=== PATIENT | male | born 1990 | race Two or more races ===

== ENCOUNTER 2021-09-20 18:01 | Emergency (ER) | payer BC, OTHER ==
[~2021-09-20] VITALS: Ht 180.3 cm; Wt 99.8 kg
[2021-09-20 18:02] VITALS: BP 139/93
== END 2021-09-20 21:08 | disposition left against medical advice (07) ==
LOC: ER 18:01
DX: M25.571 Pain in right ankle and joints of right foot (principal); Z53.21 Procedure and treatment not carried out due to patient leaving prior to being seen by health care provider; V49.69XA Unspecified car occupant injured in collision with other motor vehicles in traffic accident, initial encounter; Y93.9 Activity, unspecified; Y92.89 Other specified places as the place of occurrence of the external cause; Y99.8 Other external cause status
CPT/HCPCS: 73610

== ENCOUNTER 2023-03-17 16:04 | Emergency (ER) | payer BC, OTHER ==
[~2023-03-17] VITALS: Ht 180.3 cm; Wt 102.1 kg
[2023-03-17 16:58] VITALS: BP 134/77
[2023-03-17] MEDS: FAMOTIDINE (10MG/ML) 2ML VL IV ONE (17:52)
[2023-03-17] MEDS: methylPREDNISolone SOD SUCC 125 MG/2 ML VL IV ONE (17:53)
[2023-03-17] MEDS: diphenhdrAMINE HCL 50 MG/1 ML VL IV ONE (17:53)
[2023-03-17] MEDS ORDERED: FAMO20TA10 PO (18:07)
[2023-03-17] MEDS ORDERED: PRED20TA2 PO (18:07)
[2023-03-17] MEDS ORDERED: EPIN0.1I11 IJ (18:07)
== END 2023-03-17 19:12 | disposition home or self-care (01) ==
LOC: ER 16:04
DX: D84.1 Defects in the complement system (principal)
CPT/HCPCS: 96374; 96375; 99284; J1200; J2930; J3490

== ENCOUNTER 2024-02-23 12:41 | Inpatient (IN) | payer BC, OTHER ==
[~2024-02-23] VITALS: Ht 180.3 cm; Wt 105.4 kg
[~2024-02-23 12:41] MED LIST: EPIN0.1I11 IJ; FAMO20TA10 PO; PRED20TA2 PO
[2024-02-23 14:55] LABS: Basophils # (auto) 0.1 10 ^3/uL (0-0.2); Hematocrit 24.5 % (41.0-53.0); Neutrophils # (auto) 2.6 10 ^3/uL (1.6-8.6); White Blood Cell 4.7 10^3/uL (4.4-10.8)
[2024-02-23 14:56] LABS: Basophils % (auto) 2.8 % (0.0-2.0); Eosinophils # (auto) 0.5 10 ^3/uL (0-0.8); Lymphocytes # (auto) 1.1 10 ^3/uL (0.4-5.4); Lymphocytes % (auto) 24.5 % (10.0-50.0); Mean Corpuscular Hemoglobin 17.7 pg (28.0-32.0); Mean Corpuscular Volume 63.1 fL (80.0-100.0); Monocytes # (auto) 0.3 10 ^3/uL (0-1.3); Monocytes % (auto) 7.3 % (0.0-12.0); Neutrophils % (auto) 55.4 % (37.0-80.0); Nucleated Red Blood Cells % 0.3 %; Red Blood Cells 3.89 10^6/uL (4.5-5.90); Red Cell Distribution Width 19.7 % (11.8-14.3)
[2024-02-23 15:05] LABS: Hemoglobin 6.9 g/dL (13.5-17.5)
[2024-02-23 15:41] LABS: Anisocytosis Slight; Hypochromia Marked; Platelet Estimate Adequate
[2024-02-23 16:01] LABS: Urine Bacteria None Seen /hpf (None Seen)
[2024-02-23 16:08] LABS: Urine Blood Negative /uL (Negative); Urine Clarity Clear (Clear); Urine Color Colorless (Yellow); Urine Protein, UAD Negative (Negative); Urine Urobilinogen Normal (Negative); Urine WBC <1 /hpf (0 - 3)
[2024-02-23 16:20] LABS: Alanine Aminotransferase 11 U/L (7-40); Alkaline Phosphatase 60 U/L (46-116); Calcium 9.3 mg/dL (8.7-10.4); Carbon Dioxide 25 mmol/L (20-30); Chloride 108 mmol/L (98-107)
[2024-02-23 16:21] LABS: Anion Gap 5 (5-15); Glucose 101 mg/dL (74-106); Magnesium 2.1 mg/dL (1.6-2.6); Potassium 4.3 mmol/L (3.5-5.1); Sodium 138 mmol/L (136-145)
[2024-02-23 16:22] LABS: Albumin 4.8 g/dL (3.2-4.8); Aspartate Aminotransferase 9 U/L (13-40); BUN/Creatinine Ratio 7.8 (10.0-20.0); Bilirubin, Total 0.8 mg/dL (0.2-1.0); Blood Urea Nitrogen 9 mg/dL (9-23); Total Protein 7.2 g/dL (5.7-8.2)
[2024-02-23 16:39] LABS: INR 1.09 (0.9-1.15); Partial Thromboplastin Time 25.1 SEC (24.5-34.5); Prothrombin Time 11.4 sec (9.3-11.8)
[2024-02-23 17:40] LABS: Basophils # (auto) 0.1 10 ^3/uL (0-0.2); Eosinophils # (auto) 0.4 10 ^3/uL (0-0.8); Lymphocytes # (auto) 1.2 10 ^3/uL (0.4-5.4); Mean Corpuscular Hgb Conc. 27.9 g/dL (32.0-36.0); Monocytes # (auto) 0.4 10 ^3/uL (0-1.3); Neutrophils # (auto) 2.8 10 ^3/uL (1.6-8.6); Red Blood Cells 3.85 10^6/uL (4.5-5.90)
[2024-02-23 17:41] LABS: Basophils % (auto) 2.3 % (0.0-2.0); Eosinophils % (auto) 7.7 % (0.0-7.0); Hematocrit 24.3 % (41.0-53.0); Lymphocytes % (auto) 24.2 % (10.0-50.0); Mean Corpuscular Hemoglobin 17.6 pg (28.0-32.0); Mean Corpuscular Volume 63.1 fL (80.0-100.0); Monocytes % (auto) 7.3 % (0.0-12.0); Neutrophils % (auto) 58.5 % (37.0-80.0); Nucleated Red Blood Cells % 0.2 %; Red Cell Distribution Width 19.6 % (11.8-14.3); White Blood Cell 4.8 10^3/uL (4.4-10.8)
[2024-02-23 18:11] LABS: Hemoglobin 6.8 g/dL (13.5-17.5)
[2024-02-23] MEDS ORDERED: TEMAZEPAM 15 MG CAP PO PRN (21:30)
[2024-02-23] MEDS ORDERED: ONDANSETRON HCL 4 MG/2 ML VIAL IV PRN (21:30)
[2024-02-24] VITALS (15 sets, daily range): BP systolic 125–150; BP diastolic 74–95; PULSE 72–89; RESP 18–31; TEMP 98–98.9; O2SAT 95–98
[2024-02-24 06:33] LABS: Chloride 109 mmol/L (98-107); Potassium 4.2 mmol/L (3.5-5.1); Sodium 140 mmol/L (136-145)
[2024-02-24 06:34] LABS: Anion Gap 7 (5-15); Calcium 8.7 mg/dL (8.5-10.1); Carbon Dioxide 24 mmol/L (20-30)
[2024-02-24 06:35] LABS: Eosinophils # (auto) 0.4 10 ^3/uL (0-0.8); Lymphocytes # (auto) 1.4 10 ^3/uL (0.4-5.4); Nucleated Red Blood Cells % 0.3 %; White Blood Cell 5.1 10^3/uL (4.4-10.8)
[2024-02-24 06:38] LABS: Basophils # (auto) 0.1 10 ^3/uL (0-0.2); Basophils % (auto) 2.6 % (0.0-2.0); Eosinophils % (auto) 7.2 % (0.0-7.0); Hematocrit 24.4 % (41.0-53.0); Lymphocytes % (auto) 26.8 % (10.0-50.0); Mean Corpuscular Hemoglobin 18.5 pg (28.0-32.0); Mean Corpuscular Hgb Conc. 28.6 g/dL (32.0-36.0); Mean Corpuscular Volume 64.8 fL (80.0-100.0); Monocytes # (auto) 0.6 10 ^3/uL (0-1.3); Monocytes % (auto) 10.9 % (0.0-12.0); Neutrophils # (auto) 2.7 10 ^3/uL (1.6-8.6); Neutrophils % (auto) 52.5 % (37.0-80.0); Red Blood Cells 3.76 10^6/uL (4.5-5.90); Red Cell Distribution Width 19.4 % (11.8-14.3)
[2024-02-24 06:39] LABS: Blood Urea Nitrogen 12 mg/dL (9-23); Glucose 97 mg/dL (74-106)
[2024-02-24] MEDS: FERROUS SULFATE 325mg EC TAB PO SCH (08:00)
[2024-02-24] MEDS: HYDROCORTISONE ACET 25 MG RECTAL SUPP PR SCH (10:00)
[2024-02-24 10:51] LABS: Hemoglobin 9.3 g/dL (13.5-17.5)
[2024-02-24 10:53] LABS: Hematocrit 32.1 % (41.0-53.0)
[2024-02-24] MEDS: CARISOPRODOL 350 MG TAB PO SCH (11:21)
[2024-02-24] MEDS: ACETAMINOPHEN 325 MG TAB PO PRN (16:13)
[2024-02-24] MEDS: GOLYTELY 4L KIT PO ONE (18:14)
[2024-02-25 05:00] VITALS: BP 160/93; PULSE 79; RESP 18; TEMP 98.3; O2SAT 98
[2024-02-25 07:00] LABS: Albumin 4.4 g/dL (3.2-4.8); Anion Gap 10 (5-15); Aspartate Aminotransferase 9 U/L (13-40); BUN/Creatinine Ratio 8.8 (10.0-20.0); Bilirubin, Total 1.3 mg/dL (0.2-1.0); Blood Urea Nitrogen 10 mg/dL (9-23); Calcium 9.2 mg/dL (8.7-10.4); Carbon Dioxide 24 mmol/L (20-30); Chloride 106 mmol/L (98-107); Glucose 88 mg/dL (74-106); Potassium 3.6 mmol/L (3.5-5.1); Sodium 140 mmol/L (136-145)
[2024-02-25 07:04] LABS: INR 1.13 (0.9-1.15); Partial Thromboplastin Time 24.7 SEC (24.5-34.5); Prothrombin Time 11.9 sec (9.3-11.8)
[2024-02-25 07:08] LABS: Basophils # (auto) 0.1 10 ^3/uL (0-0.2); Eosinophils # (auto) 0.5 10 ^3/uL (0-0.8); Hematocrit 29.5 % (41.0-53.0); Lymphocytes # (auto) 1.8 10 ^3/uL (0.4-5.4)
[2024-02-25 07:09] LABS: Eosinophils % (auto) 6.9 % (0.0-7.0); Hemoglobin 8.6 g/dL (13.5-17.5); Lymphocytes % (auto) 25.1 % (10.0-50.0); Mean Corpuscular Hemoglobin 19.5 pg (28.0-32.0); Mean Corpuscular Hgb Conc. 29.1 g/dL (32.0-36.0); Mean Corpuscular Volume 66.9 fL (80.0-100.0); Monocytes # (auto) 0.6 10 ^3/uL (0-1.3); Monocytes % (auto) 9.2 % (0.0-12.0); Neutrophils % (auto) 56.8 % (37.0-80.0); Nucleated Red Blood Cells % 0.5 %; Red Blood Cells 4.41 10^6/uL (4.5-5.90)
[2024-02-25 07:12] LABS: Alkaline Phosphatase 57 U/L (46-116); Total Protein 6.8 g/dL (5.7-8.2)
[2024-02-25 07:16] LABS: Alanine Aminotransferase < 9 U/L (7-40)
[2024-02-25 07:17] LABS: Red Cell Distribution Width 22.3 % (11.8-14.3)
[2024-02-25 08:52] LABS: Hypochromia Moderate; Platelet Estimate Adequate
[2024-02-25 08:53] LABS: Polychromasia Slight; Stomatocytes Few; Tear Drop Cells FEW
[2024-02-25 09:00] VITALS: BP 116/62; PULSE 74; RESP 13; TEMP 98.1; O2SAT 95
[2024-02-25 13:00] VITALS: BP 132/75; PULSE 77; RESP 14; TEMP 98.3; O2SAT 97
[2024-02-25] MEDS ORDERED: fentaNYL CITRATE 100 MCG/2 ML VL ONE (13:51)
[2024-02-25] MEDS ORDERED: MIDAZOLAM HCL 2MG/2ML 2ml VIAL (1mg/ml) ONE (13:52)
[2024-02-25] MEDS ORDERED: KETAMINE 50mg/ML 10ml Vial 10 ML ONE (13:56)
[2024-02-25] MEDS: ONDANSETRON HCL 4 MG/2 ML VIAL IV ONE (14:00)
[2024-02-25] MEDS ORDERED: HYDROmorphone HCL 2 MG/ML VL/or syr IV PRN (14:00)
[2024-02-25] MEDS ORDERED: PROPOFOL 10 MG/ML 20 ML IV ONE ×3 (14:15→14:38)
[2024-02-25 14:41] VITALS: O2SAT 96
[2024-02-25 20:00] VITALS: RESP 18
[2024-02-25 21:00] VITALS: BP 135/95; PULSE 86; RESP 18; TEMP 98.3; O2SAT 96
[2024-02-26 01:00] VITALS: BP 138/86; PULSE 92; RESP 18; TEMP 98.3; O2SAT 96
[2024-02-26 05:00] VITALS: BP 122/80; PULSE 92; RESP 18; TEMP 98.6; O2SAT 96
[2024-02-26 08:24] VITALS: RESP 18
[2024-02-26] MEDS ORDERED: FERR-7 PO (08:40)
[2024-02-26] MEDS ORDERED: PANT40T PO (08:40)
[2024-02-26 09:00] VITALS: BP 124/77; PULSE 82; RESP 20; TEMP 97.7; O2SAT 96
[2024-02-26 09:11] VITALS: TEMP 37
== END 2024-02-26 09:55 | disposition home or self-care (01) | DRG 811 ==
LOC: ER 12:41 → CENTRAL 21:20 → OVERFLOW 21:20 → CENTRAL 02-24 14:08
PROVIDERS: ADMIT Nurse Practitioner; ATTEND Family Medicine
PROC: 30233N1 Transfusion of Nonautologous Red Blood Cells into Peripheral Vein, Percutaneous Approach (ICD-10-PCS; principal; 2024-02-24)
PROC: 0DBP8ZX Excision of Rectum, Via Natural or Artificial Opening Endoscopic, Diagnostic (ICD-10-PCS; 2024-02-25)
PROC: 0DB68ZX Excision of Stomach, Via Natural or Artificial Opening Endoscopic, Diagnostic (ICD-10-PCS; 2024-02-25 13:49)
DX: D50.9 Iron deficiency anemia, unspecified (principal); K20.91 Esophagitis, unspecified with bleeding; K29.71 Gastritis, unspecified, with bleeding; K64.8 Other hemorrhoids; K52.9 Noninfective gastroenteritis and colitis, unspecified; Z83.3 Family history of diabetes mellitus; Z79.899 Other long term (current) drug therapy
CPT/HCPCS: 36415; 71046; 80048; 80053; 81001; 83540; 83550; 83735; 83880; 84484; 85014; 85018; 85025; 85379; 85610; 85730; 86850; 86900; 86901; 86920; G0378; J2250; J2704

== ENCOUNTER 2024-09-21 18:38 | Emergency (ER) | payer BC ==
[~2024-09-21] VITALS: Ht 180.3 cm; Wt 102.6 kg
[~2024-09-21 18:38] MED LIST changes: +FERR-7 PO; +PANT40T PO
[2024-09-21] MEDS: DexAMETHasone SOD PHOS 10MG/1ML VIAL INJ IM ONE (20:13)
[2024-09-21] MEDS: KETOROLAC TROMETH 60MG/2ML VIAL IM ONE (20:14)
--- NOTE | 2024-09-21 20:25 | ED.PDOC ---
Back pain HPI HPI Comments This is a 33-year-old male presents to the ED chief complaint acute on chronic neck pain. Patient states increasing neck pain over the past 3 days left lateral side of his neck into left trap. Describes pain sharp tender in nature nonradiating left side. Rates 8/10 on pain scale. He notes large not or trigger point noted on left trap, denies known injury, denies numbness weakness. Chief Complaint: Neck Pain Time Seen by MD: 19:25 Primary Care Provider: GIORGIO De Oliveira Notes: Nurses Notes, Medications, Allergies Allergies: Coded Allergies: NO KNOWN ALLERGIES (Unverified , 09/20/21) Home Meds Active Scripts Pantoprazole Sodium Sesquihydr (Pantoprazole Sodium) 40 Mg Tab, 40 MG PO DAILY, #30 TAB Prov:ISRAEL MILTON MD 02/26/24 Ferrous Sulfate (Iron) 325 Mg Tab, 325 MG PO BID, #180 TAB Prov:ISRAEL MILTON MD 02/26/24 Famotidine (PEPCID TABLET) 20 Mg Tb, 20 MG PO DAILY for 10 Days, #10 TAB Prov:VOLODYMYR LAMA NP 03/17/23 Epinephrine (Anaphylaxis) (Auvi-Q) 0.1 Mg/0.1 Ml Inj, 0.1 MG IJ O PRN for 1 Day, #1 INJ Prov:VOLODYMYR LAMA NP 03/17/23 Prednisone (Prednisone) 20 Mg Tab, 20 MG PO QDPC for 5 Days, #5 MG Prov:VOLODYMYR LAMA NP 03/17/23 Information Source: Patient Mode of Arrival: Ambulatory Past Medical History PAST MEDICAL HISTORY: Denies Surgical History: Denies all surgeries Family History Family History: Reviewed,noncontributory to illness Family History (Other): Mother and uncle have a hx of heredetary angioedema Social History Smoker: Non-Smoker Constitutional: denies: chills, diaphoresis, fatigue, fever, malaise, sweats, weakness, others EENTM: denies: blurred vision, double vision, ear bleeding, ear discharge, ear drainage, ear pain, ear ringing, eye pain, eye redness, hearing loss, mouth pain, mouth swelling, nasal discharge, nose bleeding, nose congestion, nose pain, photophobia, tearing, throat pain, throat swelling, voice changes, others Respiratory: denies: cough, hemoptysis, orthopnea, SOB at rest, shortness of breath, SOB with excertion, stridor, wheezing, others Cardiovascular: denies: chest pain, dizzy spells, diaphoresis, Dyspnea on exertion, edema, irregular heart beat, left arm pain, lightheadedness, palpitations, PND, syncope, others Gastrointestinal: denies: abdomen distended, abdominal pain, blood streaked bowels, constipated, diarrhea, dysphagia, difficulty swallowing, hematemesis, melena, nausea, poor appetite, poor fluid intake, rectal bleeding, rectal pain, vomiting, others Genitourinary: denies: burning, dysuria, flank pain, frequency, hematuria, incontinence, penile discharge, penile sore, pain, testicle pain, testicle swelling, urgency, others Neurological: denies: dizziness, fainting, headache, left sided numbness, left sided weakness, numbness, paresthesia, pre-existing deficit, right sided numbness, right sided weakness, seizure, speech problems, tingling, tremors, weakness, others Musculoskeletal: reports: neck pain, others; denies: back pain, gout, joint pain, joint swelling, muscle pain, muscle stiffness Integumetry: denies: bruises, change in color, change in hair/nails, dryness, laceration, lesions, lumps, rash, wounds, others Allergic/Immunocompromised: denies: Difficulty Healing, Frequent Infections, Hives, Itching, others Hematologic/Lymphatic: denies: anemia, blood clots, easy bleeding, easy bruising, swollen glands, others Endocrine: denies: excessive hunger, excessive sweating, excessive thirst, excessive urination, flushing, intolerance to cold, intolerance to heat, unexplained weight gain, unexplained weight loss, others Psychiatric: denies: anxiety, bipolar disorder, depression, hopeless, panic disorder, schizophrenia, sleepless, suicidal, others Physical Exam General Appearance: No Apparent Distress, Normal HEENT: Pharynx Normal Neck: Limited Range of Motion, Tender Lateral (LEFT side into trap ), Other (No tenderness palpated over C2 through C7 without crepitus or step-offs strength sensory motion intact positive radial pulses.) Respiratory: Lungs Clear, No Respiratory Distress, Normal Breath Sounds Cardiovascular: No Murmur, Normal Peripheral Pulses, Regular Rate/Rhythm Breast Exam: Deferred Gastrointestinal: No Organomegaly, Non Tender, No Pulsatile Mass, Normal Bowel Sounds, Soft Genitalia: Deferred Pelvic: Deferred Rectal: Deferred Extremities: Normal capillary refill, Normal inspection, Normal range of motion, Non-tender, No pedal edema Musculoskeletal : Apperance: Normal Neurologic: Alert, size roller operator II-XII nml as Tested, No Motor Deficits, Normal Affect, Normal Mood, No Sensory Deficits Cerebellar Function: Normal Reflexes: Normal Skin: Dry, Normal Color, Warm Lymphatic: No Adenopathy Was a procedure done? Was a procedure done?: No Back Pain Differential Dx Differential Diagnosis: Musculoskeletal Pain X-Ray, Labs, Meds, VS Vital Signs Date Time Temp Pulse Resp B/P (MAP) Pulse Ox O2 Delivery O2 Flow Rate FiO2 09/21/24 18:50 98.9 76 16 138/92 (107) 99 98.9 09/21/24 18:50 98.9 76 16 138/92 (107) 99 09/21/24 18:50 Room Air Current Medications Medications (Trade) Dose Ordered Sig/Boris Route Start Time Stop Time Status Last Admin Ketorolac Tromethamine (Toradol Injection) 60 mg ONCE ONCE IM 09/21/24 20:00 09/21/24 20:01 DC 09/21/24 20:14 Dexamethasone Sodium Phosphate (Decadron Injection) 10 mg ONCE ONCE IM 09/21/24 20:00 09/21/24 20:01 DC 09/21/24 20:13 X-Ray, Labs, Meds, VS Comment Cervical spine x-ray of the cervical spine likely due to muscle spasms. No acute findings or osseous lesions. Toradol 60 mg IM Decadron 10 mg IM Patient reports improvement in pain states he is a lot better now than when he came in he is requesting discharge at this time script muscle relaxer and Medrol Dosepak. Advised to follow up with his PCP consider referral to small animal caretaker or physical therapy. Advised on ER return precautions. Agrees with discharge plan of care. Time of 1ST Reevaluation: :26 Reevaluation 1ST: Improved Patient Education/Counseling: Diagnosis, Treatment, Prognosis, Need For Follow Up Family Education/Counseling: Diagnosis, Prognosis, Need For Follow Up Departure 1 Departure Time of Disposition: 21:26 Impression: Primary Impression: Sprain of cervical neck Qualified Codes: S13.9XXA - Sprain of joints and ligaments of unspecified parts of neck, initial encounter Disposition: HOME / SELF CARE / HOMELESS Condition: Stable e-Prescriptions Methylprednisolone (Medrol Dosepak) 4 Mg Varun 4 MG PO UD for 6 Days, #21 TAB UAD Prov: MARY MENDOZA 09/21/24 Tizanidine Hydrochloride (Zanaflex) 4 Mg Cap 1 CAP PO QPM PRN for 7 Days, #30 CAP Prov: MARY MENDOZA 09/21/24 Discharged With: Spouse Critical Care Note Critical Care Time?: No Stability Stability form required: No MARY MENDOZA Sep 21, 2024 20:25
--- NOTE | 2024-09-21 21:12 | DVH ---
EXAM: XY CERVICAL SPINE 3V INDICATION: neck pain COMPARISON: none TECHNIQUE: 3 views of the cervical spine were obtained. Findings: There is no evidence of an acute fracture, spondylolysis, or spondylolisthesis. The vertebral body heights and disc spaces are well-maintained. Straightening of the cervical lordos is. No blastic or lytic lesions are appreciated. No radiopaque foreign bodies. No superficial soft tissue abnormalities. Impression: 1. No acute osseous abnormality. 2. Straightening of the cervical lordosis which may be positional versus muscle spasm.
[2024-09-21] MEDS ORDERED: TIZA4CAP PO (21:27)
[2024-09-21] MEDS ORDERED: METH4PAK PO (21:27)
[2024-09-21 21:37] VITALS: BP 138/90; PULSE 69; RESP 18; TEMP 98.4; O2SAT 100
== END 2024-09-21 21:39 | disposition home or self-care (01) ==
LOC: ER 18:38
DX: S13.8XXA Sprain of joints and ligaments of other parts of neck, initial encounter (principal); Z79.899 Other long term (current) drug therapy; X58.XXXA Exposure to other specified factors, initial encounter; Y93.89 Activity, other specified; Y92.89 Other specified places as the place of occurrence of the external cause; Y99.8 Other external cause status
CPT/HCPCS: 72040; 96372; 99284; J1100; J1885

== ENCOUNTER 2025-02-26 21:24 | Inpatient (IN) | payer BC ==
[~2025-02-26] VITALS: Ht 180.3 cm; Wt 102.7 kg
[~2025-02-26 21:24] MED LIST changes: +METH4PAK PO; +TIZA4CAP PO
--- NOTE | 2025-02-26 22:07 | ED.PDOC ---
GI ASSESSMENT HPI Comments 34 y.o male presents to the ED for a chief complaint of ongoing rectal bleeding x 6 months associated with new onset generalized weakness and SOB that started 2 weeks ago. Patient reports history of GI bleed due to internal and external hemorrhoids one year ago, was seen at this ED then and was to follow up with PCP who then referred him to a GI specialist. Patient went to see PCP today and was advised to come into the ED for further evaluation. Patient describes bleeding as dark red with no blood clots, diarrhea, constipation, nausea or vomiting. Chief Complaint: GI Bleed Time Seen by MD: 21:58 Primary Care Provider: GIORGIO Reviewed Notes: Nurses Notes, Medications, Allergies Allergies: Coded Allergies: NO KNOWN ALLERGIES (Unverified , 09/20/21) Home Meds Active Scripts Methylprednisolone (Medrol Dosepak) 4 Mg Varun, 4 MG PO UD for 6 Days, #21 TAB UAD Prov:MARY MENDOZAP 09/21/24 Tizanidine Hydrochloride (Zanaflex) 4 Mg Cap, 1 CAP PO QPM PRN for 7 Days, #30 CAP Prov:MARY MENDOZA 09/21/24 Pantoprazole Sodium Sesquihydr (Pantoprazole Sodium) 40 Mg Tab, 40 MG PO DAILY, #30 TAB Prov:ISRAEL MILTON MD 02/26/24 Ferrous Sulfate (Iron) 325 Mg Tab, 325 MG PO BID, #180 TAB Prov:ISRAEL MILTON MD 02/26/24 Famotidine (PEPCID TABLET) 20 Mg Tb, 20 MG PO DAILY for 10 Days, #10 TAB Prov:VOLODYMYR LAMA NP 03/17/23 Epinephrine (Anaphylaxis) (Auvi-Q) 0.1 Mg/0.1 Ml Inj, 0.1 MG IJ O PRN for 1 Day, #1 INJ Prov:VOLODYMYR LAMA NP 03/17/23 Prednisone (Prednisone) 20 Mg Tab, 20 MG PO QDPC for 5 Days, #5 MG Prov:VOLODYMYR LAMA NP 03/17/23 Information Source: Patient Mode of Arrival: Ambulatory Timing: Months Duration: Since onset Vomitus: None Stool: Blood Streaked Severity: Moderate Recent: None Recent Hx of: None Pain Location: None Modifying Factors: Nothing Associated sign and symptoms: Blood in Stool Past Medical History Past Medical History (Other): GI bleed Surgical History: Denies all surgeries Family History Family History: Reviewed,noncontributory to illness Family History (Other): Mother and uncle have a hx of heredetary angioedema Social History Smoker: Non-Smoker Alcohol: Denies ETOH Use Drugs: Denies Drug Use Lives In: Home Constitutional: reports: weakness; denies: chills, diaphoresis, fatigue, fever, malaise, sweats, others EENTM: denies: blurred vision, double vision, ear bleeding, ear discharge, ear drainage, ear pain, ear ringing, eye pain, eye redness, hearing loss, mouth pain, mouth swelling, nasal discharge, nose bleeding, nose congestion, nose pain, photophobia, tearing, throat pain, throat swelling, voice changes, others Respiratory: reports: SOB at rest, shortness of breath, SOB with excertion; denies: cough, hemoptysis, orthopnea, stridor, wheezing, others Cardiovascular: denies: chest pain, dizzy spells, diaphoresis, Dyspnea on exertion, edema, irregular heart beat, left arm pain, lightheadedness, palpitations, PND, syncope, others Gastrointestinal: reports: rectal bleeding; denies: abdomen distended, abdominal pain, blood streaked bowels, constipated, diarrhea, dysphagia, difficulty swallowing, hematemesis, melena, nausea, poor appetite, poor fluid intake, rectal pain, vomiting, others Genitourinary: denies: burning, dysuria, flank pain, frequency, hematuria, incontinence, penile discharge, penile sore, pain, testicle pain, testicle swelling, urgency, others Neurological: denies: dizziness, fainting, headache, left sided numbness, left sided weakness, numbness, paresthesia, pre-existing deficit, right sided numbness, right sided weakness, seizure, speech problems, tingling, tremors, weakness, others Musculoskeletal: denies: back pain, gout, joint pain, joint swelling, muscle pain, muscle stiffness, neck pain, others Integumetry: denies: bruises, change in color, change in hair/nails, dryness, laceration, lesions, lumps, rash, wounds, others Allergic/Immunocompromised: denies: Difficulty Healing, Frequent Infections, Hives, Itching, others Hematologic/Lymphatic: denies: anemia, blood clots, easy bleeding, easy bruising, swollen glands, others Endocrine: denies: excessive hunger, excessive sweating, excessive thirst, excessive urination, flushing, intolerance to cold, intolerance to heat, unexplained weight gain, unexplained weight loss, others Psychiatric: denies: anxiety, bipolar disorder, depression, hopeless, panic disorder, schizophrenia, sleepless, suicidal, others All Other Systems: Reviewed and Negative Physical Exam General Appearance: No Apparent Distress, Normal HEENT: Normal ENT Inspection, Pharynx Normal, TMs Normal Neck: Full Range of Motion, Non-Tender, Normal, Normal Inspection Respiratory: Chest Non-Tender, Lungs Clear, No Accessory Muscle Use, No Respiratory Distress, Normal Breath Sounds Cardiovascular: No Edema, No JVD, No Murmur, No Gallop, Normal Peripheral Pulses, Regular Rate/Rhythm Breast Exam: Deferred Gastrointestinal: No Organomegaly, Non Tender, No Pulsatile Mass, Normal Bowel Sounds, Soft Genitalia: Deferred Pelvic: Deferred Rectal: Deferred Extremities: No calf tenderness, Normal capillary refill, Normal inspection, Normal range of motion, Non-tender, No pedal edema Musculoskeletal : Apperance: Normal Neurologic: Alert, information technology security analyst II-XII nml as Tested, No Motor Deficits, Normal Affect, Normal Mood, No Sensory Deficits Cerebellar Function: Normal Reflexes: Normal Skin: Dry, Normal Color, Warm Lymphatic: No Adenopathy Was a procedure done? Was a procedure done?: No GI differential Dx Differential Diagnosis: Gastroenteritis, GI hemorrhage, Anemia, Esophageal Varicies, Stress Ulcer X-Ray, Labs, Meds, VS Vital Signs Date Time Temp Pulse Resp B/P (MAP) Pulse Ox O2 Delivery O2 Flow Rate FiO2 02/26/25 21:45 99.2 92 18 129/83 (98) 98 99.2 Lab Test 02/26/25 22:08 Range/Units White Blood Count 3.7 L 4.4-10.8 10^3/uL Red Blood Count 2.91 L 4.5-5.90 10^6/uL Hemoglobin 5.0 *L 13.5-17.5 g/dL Hematocrit 18.5 L 41.0-53.0 % Mean Corpuscular Volume 63.6 L 80.0-100.0 fL Mean Corpuscular Hemoglobin 17.3 L 28.0-32.0 pg Mean Corpuscular Hemoglobin Concent 27.2 L 32.0-36.0 g/dL Red Cell Distribution Width 20.2 H 11.8-14.3 % Platelet Count 227 140-450 10^3/uL Mean Platelet Volume 9.7 6.9-10.8 fL Neutrophils (%) (Auto) 56.7 37.0-80.0 % Lymphocytes (%) (Auto) 30.4 10.0-50.0 % Monocytes (%) (Auto) 9.6 0.0-12.0 % Eosinophils (%) (Auto) 1.5 0.0-7.0 % Basophils (%) (Auto) 1.8 0.0-2.0 % Neutrophils # (Auto) 2.1 1.6-8.6 10 ^3/uL Lymphocytes # (Auto) 1.1 0.4-5.4 10 ^3/uL Monocytes # (Auto) 0.4 0-1.3 10 ^3/uL Eosinophils # (Auto) 0.1 0-0.8 10 ^3/uL Basophils # (Auto) 0.1 0-0.2 10 ^3/uL Nucleated Red Blood Cells 0.1 % Platelet Estimate Adequate Polychromasia Slight Hypochromasia (manual) Marked Microcytosis Moderate Tear Drop Cells Few Sodium Level 142 136-145 mmol/L Potassium Level 3.6 3.5-5.1 mmol/L Chloride Level 109 H 98-107 mmol/L Carbon Dioxide Level 23 20-31 mmol/L Anion Gap 10 5-15 Blood Urea Nitrogen 11 9-23 mg/dL Creatinine 1.26 0.700-1.30 mg/dL Glomerular Filtration Rate Calc 76 >90 mL/min BUN/Creatinine Ratio 8.7 L 10.0-20.0 Serum Glucose 91 74-106 mg/dL Calcium Level 9.1 8.7-10.4 mg/dL Total Bilirubin 0.9 0.2-1.0 mg/dL Aspartate Amino Transferase (AST) 10 L 13-40 U/L Alanine Aminotransferase (ALT) 16 7-40 U/L Alkaline Phosphatase 53 46-116 U/L Total Protein 7.2 5.7-8.2 g/dL Albumin 4.8 3.2-4.8 g/dL X-Ray, Labs, Meds, VS Comment Patient will be admitted for chronic blood loss anemia Patient will be transfused with 2 units packed red blood cells Patient was to be admitted for lower GI bleed Recommend GI consult and general surgery consult Time of 1ST Reevaluation: 22:03 Reevaluation 1ST: Unchanged Patient Education/Counseling: Diagnosis, Treatment, Prognosis Family Education/Counseling: No Family Present Departure 1 Departure Time of Disposition: 23:40 Impression: Primary Impression: Chronic blood loss anemia Additional Impression: Chronic GI bleeding Disposition: ADMITTED INPATIENT Condition: Guarded Critical Care Note Critical Care Time?: Yes (30 min-critical care time only) Critical care comment: Due to a high probability of clinically significant, life threatening deterioration, the patient required my highest level of preparedness to intervene emergently and I personally spent this critical care time directly and personally managing the patient. This critical care time included obtaining a history; examining the patient; pulse oximetry; ordering and review of studies; arranging urgent treatment with development of a management plan; evaluation of patient's response to treatment; frequent reassessment; and, discussions with other providers. This critical care time was performed to assess and manage the high probability of imminent, life-threatening deterioration that could result in multi-organ failure. It was exclusive of separately billable procedures and treating other patients and teaching time. Stability Stability form required: No I personally scribed for GAY TORRES ([facility]) on 02/26/25 at 22:07. Electronically submitted by Herminia Banks ([facility]). GAY TORRES Feb 26, 2025 22:07
--- NOTE | 2025-02-26 22:22 | DVH ---
EXAM: CT CT AB PEL WO CON-NO ORAL OR IV INDICATION: abd pain TECHNIQUE: Volumetric multidetector CT images of the abdomen and pelvis were obtained without contras t. All CT scans at this facility use dose modulation, iterative reconstruction, and/or weight based d osing when appropriate to reduce radiation dose to as low as reasonably achievable. COMPARISON: None FINDINGS: LOWER CHEST: The partially visualized lung bases are clear without a pleural effusion. The cardiac si ze is normal without pericardial effusion. LIVER: Normal hepatic size without suspicious focal lesion. GALLBLADDER AND BILIARY TREE: No cholelithiasis. SPLEEN: Unremarkable. PANCREAS: Unremarkable. ADRENAL GLANDS: Unremarkable KIDNEYS: No hydronephrosis. No nephroureterolithiasis. BLADDER: Bladder is decompressed REPRODUCTIVE ORGANS: Unremarkable. BOWEL/MESENTERY: Stomach is normal. No CT evidence of bowel obstruction. Normal appendix. ASCITES: Absent LYMPHADENOPATHY: No pathologically enlarged lymph nodes by CT size criteria VASCULATURE: No aneurysmal dilatation. ABDOMINAL WALL: Unremarkable. MUSCULOSKELETAL: No acute fracture or aggressive focal osseous lesion. IMPRESSION: 1. No CT evidence of an acute abdominal/pelvic process.
[2025-02-26 22:26] LABS: Basophils # (auto) 0.1 10 ^3/uL (0-0.2); Basophils % (auto) 1.8 % (0.0-2.0); Eosinophils # (auto) 0.1 10 ^3/uL (0-0.8); Eosinophils % (auto) 1.5 % (0.0-7.0); Hematocrit 18.5 % (41.0-53.0); Lymphocytes # (auto) 1.1 10 ^3/uL (0.4-5.4); Lymphocytes % (auto) 30.4 % (10.0-50.0); Mean Corpuscular Hemoglobin 17.3 pg (28.0-32.0); Mean Corpuscular Hgb Conc. 27.2 g/dL (32.0-36.0); Mean Corpuscular Volume 63.6 fL (80.0-100.0); Monocytes # (auto) 0.4 10 ^3/uL (0-1.3); Monocytes % (auto) 9.6 % (0.0-12.0); Neutrophils # (auto) 2.1 10 ^3/uL (1.6-8.6); Neutrophils % (auto) 56.7 % (37.0-80.0); Nucleated Red Blood Cells % 0.1 %; Platelet Count (auto) 227 10^3/uL (140-450); Red Blood Cells 2.91 10^6/uL (4.5-5.90); White Blood Cell 3.7 10^3/uL (4.4-10.8)
[2025-02-26 22:30] LABS: Red Cell Distribution Width 20.2 % (11.8-14.3)
[2025-02-26 22:41] LABS: Alanine Aminotransferase 16 U/L (7-40); Alkaline Phosphatase 53 U/L (46-116); Anion Gap 10 (5-15); BUN/Creatinine Ratio 8.7 (10.0-20.0); Blood Urea Nitrogen 11 mg/dL (9-23); Calcium 9.1 mg/dL (8.7-10.4); Carbon Dioxide 23 mmol/L (20-31); Glucose 91 mg/dL (74-106); Potassium 3.6 mmol/L (3.5-5.1); Sodium 142 mmol/L (136-145); Total Protein 7.2 g/dL (5.7-8.2)
[2025-02-26 22:42] LABS: Bilirubin, Total 0.9 mg/dL (0.2-1.0)
[2025-02-26 22:45] LABS: Albumin 4.8 g/dL (3.2-4.8); Aspartate Aminotransferase 10 U/L (13-40); Chloride 109 mmol/L (98-107)
[2025-02-26 23:19] LABS: Hypochromia Marked
[2025-02-26 23:20] LABS: Polychromasia Slight; Tear Drop Cells FEW
[2025-02-26 23:21] LABS: Platelet Estimate Adequate
[2025-02-26 23:25] VITALS: PULSE 104; RESP 12; O2SAT 97
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
[2025-02-27] VITALS (15 sets, daily range): BP systolic 115–145; BP diastolic 55–94; PULSE 56–78; RESP 14–25; TEMP 98.1–99.1; O2SAT 95–99
[2025-02-27] MEDS ORDERED: ACETAMINOPHEN 325 MG TAB PO PRN
[2025-02-27] MEDS ORDERED: MORPHINE SULFATE INJ 2 MG/ml SYRG IV PRN
[2025-02-27] MEDS: SODIUM CHLORIDE 0.9% 1,000 ML IV SCH (00:22)
[2025-02-27] MEDS: PANTOPRAZOLE 40 MG/10 ML VIAL INJ IV ONE (00:22)
[2025-02-27 00:40] LABS: INR 1.08 (0.9-1.15); Partial Thromboplastin Time 22.6 SEC (24.5-34.5); Prothrombin Time 11.4 sec (9.3-11.8)
[2025-02-27 00:56] LABS: % Iron Saturation 4.8 % (20-55)
[2025-02-27 01:03] LABS: Urine Bacteria None Seen /hpf (None Seen)
[2025-02-27 01:19] LABS: Ferritin 1.6 ng/mL (22-322); Folate (Folic Acid) 7.67 ng/mL (>5.38)
[2025-02-27 01:21] LABS: Urine Blood Negative /uL (Negative); Urine Clarity Clear (Clear); Urine Color Light-Yellow (Yellow); Urine Protein, UAD Negative (Negative); Urine Specific Gravity 1.012 (1.001-1.035); Urine Squamous Epithelial Cell FEW /hpf (<5); Urine Urobilinogen Normal (Negative); Urine pH 5.5 (5.0-9.0)
[2025-02-27 01:26] LABS: Urine WBC < 1 /HPF (0-3)
[2025-02-27 02:01] LABS: Amphetamine Screen, Urine Neg (NEGATIVE); Barbiturate Scree,Urine Neg (NEGATIVE); Benzodiazephine Screen, Urine Neg (NEGATIVE); Cannabinoid Screen, Urine Neg (NEGATIVE); Cocaine Screen, Urine Neg (NEGATIVE); Opiate Scree,Urine Neg (NEGATIVE); Phencyclidine Screen, Urine Neg (NEGATIVE)
[2025-02-27 10:05] LABS: Eosinophils # (auto) 0.1 10 ^3/uL (0-0.8); Monocytes # (auto) 0.3 10 ^3/uL (0-1.3); Neutrophils # (auto) 1.5 10 ^3/uL (1.6-8.6); White Blood Cell 2.9 10^3/uL (4.4-10.8)
[2025-02-27 10:07] LABS: Basophils # (auto) 0.1 10 ^3/uL (0-0.2); Basophils % (auto) 2.5 % (0.0-2.0); Eosinophils % (auto) 2.7 % (0.0-7.0); Hematocrit 20.9 % (41.0-53.0); Lymphocytes % (auto) 34.4 % (10.0-50.0); Mean Corpuscular Hemoglobin 19.7 pg (28.0-32.0); Mean Corpuscular Hgb Conc. 28.9 g/dL (32.0-36.0); Monocytes % (auto) 9.4 % (0.0-12.0); Nucleated Red Blood Cells % 0.2 %; Platelet Count (auto) 189 10^3/uL (140-450); Red Blood Cells 3.05 10^6/uL (4.5-5.90)
[2025-02-27 10:09] LABS: Mean Corpuscular Volume 68.3 fL (80.0-100.0)
[2025-02-27 10:14] LABS: Potassium 3.8 mmol/L (3.5-5.1); Sodium 142 mmol/L (136-145)
[2025-02-27 10:15] LABS: Anion Gap 8 (5-15); Carbon Dioxide 22 mmol/L (20-31); Chloride 112 mmol/L (98-107)
[2025-02-27 10:16] LABS: Calcium 8.6 mg/dL (8.7-10.4)
[2025-02-27 10:20] LABS: BUN/Creatinine Ratio 8.1 (10.0-20.0); Glucose 95 mg/dL (74-106)
[2025-02-27] MEDS: PANTOPRAZOLE 40 MG/10 ML VIAL INJ IV SCH (10:26)
[2025-02-27 10:27] LABS: Blood Urea Nitrogen 9 mg/dL (9-23)
[2025-02-27 12:01] LABS: Basophils # (auto) 0.1 10 ^3/uL (0-0.2); Eosinophils # (auto) 0.1 10 ^3/uL (0-0.8); Mean Corpuscular Hemoglobin 19.7 pg (28.0-32.0); Monocytes # (auto) 0.3 10 ^3/uL (0-1.3); Nucleated Red Blood Cells % 0.2 %; White Blood Cell 3.4 10^3/uL (4.4-10.8)
[2025-02-27 12:02] LABS: Basophils % (auto) 1.9 % (0.0-2.0); Eosinophils % (auto) 2.7 % (0.0-7.0); Hematocrit 21.5 % (41.0-53.0); Lymphocytes # (auto) 1.2 10 ^3/uL (0.4-5.4); Lymphocytes % (auto) 33.9 % (10.0-50.0); Mean Corpuscular Hgb Conc. 28.8 g/dL (32.0-36.0); Mean Corpuscular Volume 68.4 fL (80.0-100.0); Monocytes % (auto) 8.9 % (0.0-12.0); Neutrophils # (auto) 1.8 10 ^3/uL (1.6-8.6); Neutrophils % (auto) 52.6 % (37.0-80.0); Platelet Count (auto) 179 10^3/uL (140-450); Red Blood Cells 3.15 10^6/uL (4.5-5.90)
[2025-02-27 12:05] LABS: Red Cell Distribution Width 23.7 % (11.8-14.3)
[2025-02-27 12:08] LABS: Hemoglobin 6.2 g/dL (13.5-17.5)
[2025-02-27] MEDS: IRON SUCROSE COMPLEX 110 ML IV SCH (12:55)
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
[2025-02-27] MEDS: GOLYTELY 4L KIT PO ONE (18:34)
[2025-02-27] MEDS ORDERED: ZOLP10TA6 PO (22:20)
[2025-02-27] MEDS ORDERED: CARI-579 PO (22:20)
[2025-02-27] MEDS ORDERED: PANT40TA57 PO (22:20)
[2025-02-27] MEDS ORDERED: IBUP1TAB5 PO (22:20)
[2025-02-27] MEDS: ZOLPIDEM TARTRATE 5 MG TAB PO PRN (23:15)
[2025-02-27] MEDS: CARISOPRODOL 350 MG TAB PO PRN (23:18)
[2025-02-28] VITALS (8 sets, daily range): BP systolic 130–145; BP diastolic 63–88; PULSE 62–80; RESP 13–20; TEMP 98–98.4; O2SAT 97–100
[2025-02-28] MEDS: MAGNESIUM CITRATE SOLUTION 300 ML BTL PO ONE (05:10)
[2025-02-28] MEDS: GOLYTELY 4L KIT PO ONE (05:10)
[2025-02-28 06:48] LABS: Basophils # (auto) 0.1 10 ^3/uL (0-0.2); Eosinophils # (auto) 0.1 10 ^3/uL (0-0.8); Hemoglobin 7.2 g/dL (13.5-17.5); Monocytes # (auto) 0.4 10 ^3/uL (0-1.3); Neutrophils # (auto) 2.9 10 ^3/uL (1.6-8.6)
[2025-02-28 06:52] LABS: Basophils % (auto) 1.1 % (0.0-2.0); Eosinophils % (auto) 1.6 % (0.0-7.0); Hematocrit 24.1 % (41.0-53.0); Lymphocytes # (auto) 1.2 10 ^3/uL (0.4-5.4); Lymphocytes % (auto) 25.8 % (10.0-50.0); Mean Corpuscular Hemoglobin 20.5 pg (28.0-32.0); Mean Corpuscular Hgb Conc. 29.9 g/dL (32.0-36.0); Mean Corpuscular Volume 68.4 fL (80.0-100.0); Neutrophils % (auto) 62.5 % (37.0-80.0); Nucleated Red Blood Cells % 0.3 %; Platelet Count (auto) 198 10^3/uL (140-450); Red Blood Cells 3.52 10^6/uL (4.5-5.90); White Blood Cell 4.7 10^3/uL (4.4-10.8)
[2025-02-28 06:56] LABS: Red Cell Distribution Width 25.4 % (11.8-14.3)
[2025-02-28 07:40] LABS: Alanine Aminotransferase 12 U/L (7-40); Albumin 4.2 g/dL (3.2-4.8); Alkaline Phosphatase 49 U/L (46-116); Anion Gap 9 (5-15); BUN/Creatinine Ratio 6.3 (10.0-20.0); Calcium 8.9 mg/dL (8.7-10.4); Carbon Dioxide 23 mmol/L (20-31); Glucose 85 mg/dL (74-106); Sodium 141 mmol/L (136-145); Total Protein 6.4 g/dL (5.7-8.2)
[2025-02-28 07:41] LABS: Phosphorus 2.6 mg/dL (2.4-5.1)
[2025-02-28 07:47] LABS: Aspartate Aminotransferase 10 U/L (13-40); Bilirubin, Total 1.4 mg/dL (0.2-1.0); Blood Urea Nitrogen 7 mg/dL (9-23); Chloride 109 mmol/L (98-107); Potassium 3.5 mmol/L (3.5-5.1)
[2025-02-28] MEDS: MAALOX PLUS or MAALOX 30 ML PO PRN (10:01)
[2025-02-28] MEDS ORDERED: PROPOFOL 10 MG/ML 20 ML IV ONE ×2 (14:15→14:27)
[2025-02-28] MEDS ORDERED: LIDOCAINE 1% INJ PF 5ML AMP ONE (14:15)
--- NOTE | 2025-02-28 14:41 | DVHOP2 ---
Operative Report DATE OF OPERATION: 02/28/25 PROCEDURE: Diagnostic Colonoscopy. PREOPERATIVE INDICATION: The patient is a 34 -year-old male undergoing colonoscopy for rectal bleeding recurrent POSTOPERATIVE DIAGNOSES: 1. 1+ internal and 2+ external hemorrhoids and grade 1 prolapse of the hemorrhoids 2. Otherwise essentially complete and normal colonoscopy examination up to the cecum and terminal ileum PROCEDURE PERFORMED BY: Beverly Medrano M.D. SCOPE: Olympus videocolonoscope. ASA CLASS: 2 PREOPERATIVE MEDICATIONS: Mac sedation, Loki PROCEDURE IN DETAIL: After obtaining an informed consent, the patient was placed on left lateral decubitus position. He was then sedated with the above medications. A rectal examination was performed that was normal. The colonoscope was then passed through the anus into the rectosigmoid and through the descending, transverse, and ascending colon up to the cecum with visualization of the appendiceal orifice, base of the cecum and the ileocecal valve. The colonoscope was then withdrawn. The distal 5 cm of the terminal ileum were normal No polyps or masses were seen. There was no colitis or diverticular disease. There was no fresh or old blood in the colon. Patient had a good bowel prep On retroflexion and straight on view he had 1+ internal and 2+ external slightly engorged internal hemorrhoids with grade 1 prolapse of the hemorrhoids The patient tolerated the procedure well without difficulty. WITHDRAWAL TIME: 6 minutes QUALITY OF THE PREP: Bunn Bowel Prep score: 9. COMPLICATIONS : None SPECIMENS: None DISPOSITION: Transfer back to the floor Stable PLAN: 1. Repeat colonoscopy in 10 years 2. Resume GI soft diet 3. Locally no rectal hemorrhoidal care discussed and avoid aspirin NSAIDs 4. Patient has a scheduled surgical consultation appointment to arrange outpatient elective hemorrhoidectomy BEVERLY MEDRANO MD Feb 28, 2025 14:41
--- NOTE | 2025-02-28 15:38 | DVHDS2 ---
Discharge Summary Date of Admission Feb 26, 2025 at 23:48 Date of Discharge: Feb 28, 2025 Labs/Diagnostic Data: Laboratory Results Test 02/28/25 06:22 02/27/25 18:45 02/27/25 09:53 02/27/25 01:02 White Blood Count 4.7 10^3/uL (4.4-10.8) Red Blood Count 3.52 10^6/uL (4.5-5.90) Hemoglobin 7.2 g/dL (13.5-17.5) Hematocrit 24.1 % (41.0-53.0) Mean Corpuscular Volume 68.4 fL (80.0-100.0) Mean Corpuscular Hemoglobin 20.5 pg (28.0-32.0) Mean Corpuscular Hemoglobin Concent 29.9 g/dL (32.0-36.0) Red Cell Distribution Width 25.4 % (11.8-14.3) Platelet Count 198 10^3/uL (140-450) Mean Platelet Volume 9.8 fL (6.9-10.8) Neutrophils (%) (Auto) 62.5 % (37.0-80.0) Lymphocytes (%) (Auto) 25.8 % (10.0-50.0) Monocytes (%) (Auto) 9.0 % (0.0-12.0) Eosinophils (%) (Auto) 1.6 % (0.0-7.0) Basophils (%) (Auto) 1.1 % (0.0-2.0) Neutrophils # (Auto) 2.9 10 ^3/uL (1.6-8.6) Lymphocytes # (Auto) 1.2 10 ^3/uL (0.4-5.4) Monocytes # (Auto) 0.4 10 ^3/uL (0-1.3) Eosinophils # (Auto) 0.1 10 ^3/uL (0-0.8) Basophils # (Auto) 0.1 10 ^3/uL (0-0.2) Nucleated Red Blood Cells 0.3 % Sodium Level 141 mmol/L (136-145) Potassium Level 3.5 mmol/L (3.5-5.1) Chloride Level 109 mmol/L (98-107) Carbon Dioxide Level 23 mmol/L (20-31) Anion Gap 9 (5-15) Blood Urea Nitrogen 7 mg/dL (9-23) Creatinine 1.12 mg/dL (0.700-1.30) Glomerular Filtration Rate Calc 88 mL/min (>90) BUN/Creatinine Ratio 6.3 (10.0-20.0) Serum Glucose 85 mg/dL (74-106) Calcium Level 8.9 mg/dL (8.7-10.4) Phosphorus Level 2.6 mg/dL (2.4-5.1) Magnesium Level 2.0 mg/dL (1.6-2.6) Total Bilirubin 1.4 mg/dL (0.2-1.0) Aspartate Amino Transferase (AST) 10 U/L (13-40) Alanine Aminotransferase (ALT) 12 U/L (7-40) Alkaline Phosphatase 49 U/L (46-116) Total Protein 6.4 g/dL (5.7-8.2) Albumin 4.2 g/dL (3.2-4.8) Reticulocyte Count (auto) 2.02 % (0.5-1.5) Haptoglobin 105 mg/dL (17-317) Urine Color Light-yellow (Yellow) Urine Clarity Clear (Clear) Urine pH 5.5 (5.0-9.0) Urine Specific [place] 1.012 (1.001-1.035) Urine Protein Negative (Negative) Urine Ketones Negative (Negative) Urine Blood Negative /uL (Negative) Urine Nitrite Negative (Negative) Urine Bilirubin Negative (Negative) Urine Urobilinogen Normal mg/dL (Negative) Urine Leukocyte Esterase Negative /uL (Negative) Urine RBC None seen /hpf (0 - 3) Urine Microscopic WBC < 1 /HPF (0-3) Urine Squamous Epithelial Cells Few /hpf (<5) Urine Bacteria None seen /hpf (None Seen) Urine Glucose Normal mg/dL (Normal) Urine Opiates Screen Neg (NEGATIVE) Urine Fentanyl Screen Neg (NEGATIVE) Urine Barbiturates Screen Neg (NEGATIVE) Urine Phencyclidine Screen Neg (NEGATIVE) Urine Amphetamines Screen Neg (NEGATIVE) Urine Benzodiazepines Screen Neg (NEGATIVE) Urine Cocaine Screen Neg (NEGATIVE) Urine Cannabinoids Screen Neg (NEGATIVE) Test 02/26/25 22:08 Platelet Estimate Adequate Polychromasia Slight Hypochromasia (manual) Marked Microcytosis Moderate Tear Drop Cells Few Prothrombin Time 11.4 sec (9.3-11.8) Prothrombin Time INR 1.08 (0.9-1.15) Activated Partial Thromboplast Time 22.6 SEC (24.5-34.5) Hemoglobin A1c < 5.7 % A1C (<5.7) Lactic Acid Level 1.2 mmol/L (0.4-2.0) Iron Level 21 ug/dL (65-175) Total Iron Binding Capacity 440 ug/dL (250-425) Percent Iron Saturation 4.8 % (20-55) Ferritin 1.6 ng/mL (22-322) Triglycerides Level 72 mg/dL (< 150) Cholesterol Level 96 mg/dL (< 200) LDL Cholesterol 51 mg/dL (< 100) HDL Cholesterol 34 mg/dL (40-59) Lipase 29 U/L (12-53) Vitamin B12 Level 429 pg/mL (211-911) Vitamin D 25-Hydroxy 9.8 ng/mL (30.0-100) Folic Acid 7.67 ng/mL (>5.38) Thyroid Stimulating Hormone (TSH) 1.68 uIU/mL (0.55-4.78) Other Laboratory Tests 02/28/25 06:22 Brief Hx & Hospital Course: 34 yo M with prior hx of bleeding hemorrhoids, admitted for symptomatic anemia requiring transfusion. Patient received PRBC, GI consulted. Low ferritin found, patient received IV venofer. Colonoscopy done today, with findings of hemorrhoids. Patient had follow up for surgical removal of hemorrhoids on . Stable to [place] [facility] 2 weeks for CBC. Condition at Discharge: Good Final Diagnosis/Problems List Acute on chronic hemorrhage 2/2 hemorrhoids microcytic anemia, symptomatic, req transfusion HENRY chronic back pain insomnia elevated BP readgins Discharge Disposition: Home Discharge Statement: "Patient was advised to return to the ER or call 911 if any headaches, dizziness, shortness of breath, chest pain, abdominal pain, bleeding, fevers, or worsening of medical condition. Patient was counseled about treatment plan, medications, possible side effects, patientverbalized understanding. All questions were answered to the best of my ability. This discharge took greater then 30 minutes in planning, reviewing documentation, counseling the patient, and discussing with other team members." ASSESSMENT ASSESSMENT Assessment Date of Service: Feb 28, 2025 Billing Provider: BALDOMERO ISBELL MD Common Visit Codes: [id number] DISCH DAY >30min BALDOMERO ISBELL MD Feb 28, 2025 15:38
[2025-02-28] MEDS ORDERED: HYDR25SU21 PR (15:39)
== END 2025-02-28 19:15 | disposition home or self-care (01) | DRG 812 ==
LOC: ER 21:24 → OVERFLOW 23:48 → TELE-WESTW 02-27 21:39
PROVIDERS: ADMIT Student in an Organized Health Care Education/Training Program; ATTEND Student in an Organized Health Care Education/Training Program
PROC: 30233N1 Transfusion of Nonautologous Red Blood Cells into Peripheral Vein, Percutaneous Approach (ICD-10-PCS; principal; 2025-02-27)
PROC: 0DJD8ZZ Inspection of Lower Intestinal Tract, Via Natural or Artificial Opening Endoscopic (ICD-10-PCS; 2025-02-28)
DX: D50.0 Iron deficiency anemia secondary to blood loss (chronic) (principal); K64.8 Other hemorrhoids; K64.4 Residual hemorrhoidal skin tags; K29.70 Gastritis, unspecified, without bleeding; G89.29 Other chronic pain; T78.3XXA Angioneurotic edema, initial encounter; J45.909 Unspecified asthma, uncomplicated; K21.9 Gastro-esophageal reflux disease without esophagitis; G47.00 Insomnia, unspecified; Z79.899 Other long term (current) drug therapy; Z83.3 Family history of diabetes mellitus; Z82.49 Family history of ischemic heart disease and other diseases of the circulatory system; Y84.8 Other medical procedures as the cause of abnormal reaction of the patient, or of later complication, without mention of misadventure at the time of the procedure; Y92.89 Other specified places as the place of occurrence of the external cause
CPT/HCPCS: 36415; 74176; 80048; 80053; 80061; 80307; 81001; 82306; 82607; 82728; 82746; 83010; 83021; 83036; 83540; 83550; 83605; 83690; 83735; 84100; 84443; 85025; 85045; 85610; 85660; 85730; 86850; 86900; 86901; 86920; 96361; 96374; 99291; G0378; J1756; J2470; J2704

== ENCOUNTER 2025-09-21 03:13 | Emergency (ER) | payer BC ==
[~2025-09-21] VITALS: Ht 180.3 cm; Wt 108.5 kg
[~2025-09-21 03:13] MED LIST changes: +CARI-579 PO; +HYDR25SU21 PR; +IBUP1TAB5 PO; -METH4PAK PO; -PRED20TA2 PO; +ZOLP10TA6 PO
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
[2025-09-21] MEDS ORDERED: TIZA-142 PO (05:00)
[2025-09-21] MEDS ORDERED: METH4PAK PO (05:00)
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
[2025-09-21] MEDS ORDERED: KETOROLAC TROMETH 60MG/2ML VIAL ONE (05:36)
[2025-09-21] MEDS: KETOROLAC TROMETH 60MG/2ML VIAL IM ONE (05:36)
[2025-09-21 06:24] VITALS: BP 127/62; PULSE 67; RESP 16; TEMP 98; O2SAT 99
== END 2025-09-21 06:26 | disposition home or self-care (01) ==
LOC: ER 03:13
DX: S13.4XXA Sprain of ligaments of cervical spine, initial encounter (principal); S39.012A Strain of muscle, fascia and tendon of lower back, initial encounter; S20.219A Contusion of unspecified front wall of thorax, initial encounter; Z79.899 Other long term (current) drug therapy; V89.2XXA Person injured in unspecified motor-vehicle accident, traffic, initial encounter; Y93.89 Activity, other specified; Y92.488 Other paved roadways as the place of occurrence of the external cause; Y99.8 Other external cause status
CPT/HCPCS: 71046; 72040; 72100; 96372; 99284; J1885